=== PATIENT | female | born 1995 | race Caucasian/White ===

== ENCOUNTER 2022-03-12 17:58 | Observation (INO) | payer OTHER, BC, SELFPAY ==
[2022-03-12 18:34] VITALS: BP 122/75; PULSE 85
[2022-03-12 18:45] VITALS: BP 117/65; PULSE 83
[2022-03-12 18:53] LABS: Hematocrit 29.5 % (37.0-47.0); Mean Corpuscular HGB Conc 33.9 g/dl (32-36); Mean Corpuscular Hemoglobin 31.2 pg (26-34); Mean Corpuscular Volume 91.9 fl (80-100); Mean Platelet Volume 10.2 fl (7.4-10.4); Platelet Count Result 351 k/mm3 (150-375); Red Blood Count 3.21 M/mm3 (4.2-5.4); Red Cell Distribution Width 11.9 % (11.5-14.5); White Blood Count 14.7 K/mm3 (4.5-10.0)
[2022-03-12 19:00] VITALS: BP 112/65; PULSE 87
[2022-03-12 19:15] VITALS: BP 109/74; PULSE 85
[2022-03-12 19:30] VITALS: BP 102/82; PULSE 73
--- NOTE | 2022-03-15 14:35 | PM.OBTRLD ---
OB - Triage/Final Diagnosis Visit Information Reason for evaluation: threatened labor Comments/Additional reasons for admission: I have assessed the risk for this patient, Heidi Catherine, and determined that she would benefit from observation care. Evaluation Laboratory results: Laboratory Tests 03/12/22 03/12/22 18:39 18:42 WBC 14.7 H RBC 3.21 L Hgb 10.0 L Hct 29.5 L MCV 91.9 MCH 31.2 MCHC 33.9 RDW 11.9 Plt Count 351 MPV 10.2 Blood Type O Positive Antibody Screen Negative KB Hemoglobin Negative
== END 2022-03-12 21:20 | disposition home or self-care (01) ==
PROVIDERS: Admitting Provider Obstetrics & Gynecology; Visit Provider Obstetrics & Gynecology
DX: O47.9 False labor, unspecified (principal); Z3A.00 Weeks of gestation of pregnancy not specified
CPT/HCPCS: 36415; 85027; 85460; 86850; 86900; 86901; G0378; G0379